=== PATIENT | male | born 1995 | race Caucasian/White ===

== ENCOUNTER 2019-05-07 21:23 | Emergency (ER) | payer BC, SELFPAY ==
[2019-05-07] VITALS (22 sets, daily range): BP systolic 120–142; BP diastolic 67–91; PULSE 112–160; RESP 16–42; TEMP 36.3; O2SAT 94–99
--- NOTE | 2019-05-07 21:41 | DI.CT_ITS ---
SYMPTOM/DIAGNOSIS: VOMITING AND DIARRHEA FOR [address]: 05/07 CT examination of the abdomen and pelvis was performed with a bolus infusion of 100 cc Omnipaque 350. Images obtained through the lung bases are unremarkable. Note is made of hepatic steatosis with no focal hepatic lesion. Liver appears mildly enlarged. Spleen is enlarged and there is a peripheral wedge shaped defect or defects which may represent regions of splenic infarction. Pancreas is unremarkable in appearance. No perisplenic fluid. Adrenals and kidneys are unremarkable. Abdominal aorta is of normal diameter and no major vascular abnormalities seen. No significant abdominal wall hernia. No adenopathy. Appendix is normal No evidence of diverticulitis or bowel obstruction. CONCLUSION: Splenomegaly and peripheral wedge shape splenic defects suggesting infarct. Other etiologies including hematoma or infectious process not entirely excluded. Follow up CT examination may be obtained if clinically indicated.
--- NOTE | 2019-05-07 21:43 | W.ED.GENAD ---
Discharge Plan Disposition Patient Disposition: [facility] Condition: Stable Discharge Details Chief Complaint: Nausea/Vomit/Diar Clinical Impression: Splenic infarct Primary Care Provider: Marci,Local ED Provider: Javier Lake Home Meds and New Rx's Prescriptions: No Action cetirizine [Zyrtec] 10 mg Tablet 10 mg PO DAILY RF: 0 citalopram 10 mg Tablet 10 mg PO DAILY RF: 0 Medical Decision Making <Mahamed Haq DO - Last Filed: 05/07/19 23:38> This is a 23-year-old male with a past medical history of notable anxiety who presents today for evaluation of nausea vomiting diarrhea for the last week. No red flags of hematemesis, hematochezia melena or acholic stool. No abdominal tenderness whatsoever. No recent antibiotics, long trips, or previous cardiac disease or pulmonary emboli. Patient has had notable stressors as of late, he recently lost his regular psychologist at [place], he just moved back appear to [place], and has had multiple stresses on his life. Physical exam demonstrates notably tachycardic, notably nervous appearing young male. No abdominal tenderness whatsoever. No guarding or rebound. Notably dry mucous membranes. He has no chest pain or shortness of breath whatsoever. He states that he often gets extremely tachycardic when he comes to the hospital. I feel that patient's symptoms are likely from notable anxiety, potentially causing a stress ulcer leading to the nausea vomiting and diarrhea. Patient is tachycardia is a combination of notable dehydration in conjunction with anxiety. However because of the patient's symptoms, we will evaluate for cardiac etiology, rehydrate, get a CT scan of his abdomen, evaluate for electrolyte status and reassess. Denies PE risk factors such as , immobilization, recent surgery, prior history of DVT or PE, family history of PE or DVT, morbid obesity, exogenous estrogen and smoking, hemoptysis, history of cancer. 11:[address] scan results have returned, and per virtual radiology there is evidence of splenomegaly in conjunction with a peripheral wedge-shaped lesion in the spleen concerning for splenic infarct. Morphology is expected to be subacute. Laboratory work-up has returned and demonstrates mild electrolyte abnormalities of a potassium of 3.1 which will correct. Calcium is slightly at 8.3. TSH notably elevated. Troponin normal. White count is 14.76. Repeat assessment as the patient's heart rate has slowed does demonstrate questionable mild systolic murmur. No Janeway lesions or Osler nodes. The patient is afebrile here. The patient continues to deny any IV or illicit drug use. Patient has had occasional intermittent fevers lately, but is afebrile here. Differential does include septic emboli, less likely leukemia or lymphoma, or bleeding coagulation abnormality. Lactate has been added, PT and INR has been added. EKG 21: 41 Rate 135, intervals normal, sinus tachycardia, NJ slightly short, no evidence of delta wave. No significant ST elevations or depressions. Inverted T wave is present in lead III and aVF. FINDINGS: Liver: Fatty liver with no mass lesions. Gallbladder and bile ducts: No stones or dilation, gallbladder present. Pancreas: No ductal dilation. No masses. Spleen: Splenomegaly. Peripheral wedge shaped region of hypoattenuation measuring up to 6 cm. somewhat hazy margins. No perisplenic collections. The spleen measures 16 cm craniocaudad. Adrenals: No mass. Kidneys and ureters: No hydronephrosis. No renal masses. Stomach and bowel: Submucosal fat deposition in the colon, likely habitus related. No focal pathology in the remainder of the colon. No focal pathology in the small bowel. Appendix: No evidence of appendicitis. Intraperitoneal space: Trace rectovesical free fluid. Vasculature: No abdominal aortic aneurysm. Lymph nodes: Enlarged gastrohepatic lymph nodes. No significant retroperitoneal adenopathy. Enlarged portacaval lymph nodes. Bladder: Unremarkable as visualized. Reproductive: Unremarkable as visualized. Bones/joints: No acute fracture. No dislocation. Soft tissues: No suspicious lesions. IMPRESSION: 1. Splenomegaly. Peripheral wedge shaped region of hypoattenuation in the spleen, probably a splenic infarct, morphology suggests subacute. 2. Fatty liver. Portacaval and gastrohepatic adenopathy. 3. Additional findings as described. Dictated and Authenticated by: Cheryl Vences MD. Ordering:FAZAL Irby MD <Javier Lake MD - Last Filed: 05/08/19 00:52> Received signout from Dr. Haq. Please see his note regarding details of the presentation and initial plan of care. Patient's diagnostic studies notable for a lactic acid of 2.9, elevated white blood cell count at 14 with left shift, fairly discrete anion gap of 12, normal troponin. He has a 6 cm peripheral wedge-shaped infarct of his spleen on CT, note of fatty liver. Heart rate initially 160s, improving to 117. He remains hemodynamically stable. Receiving 1 L #2 of fluid, his blood cultures obtained and is receiving vancomycin and Zosyn. Case discussed with Dr Wilhelm of [facility] [place] and patient accepted in transfer for ongoing monitoring and workup of splenic infarct with subj fevers and elevated lactic acidosis/WBC. Lab Data Lab results reviewed: Yes I reviewed the patient's lab results. Laboratory Results - last 24 hr 05/07/19 05/07/19 05/07/19 21:49 21:49 21:49 WBC 14.76 H RBC 4.15 L Hgb 13.2 L Hct 38.5 L MCV 92.8 MCH 31.8 MCHC 34.3 RDW 13.8 Plt Count 238 MPV 10.8 Immature Gran % See Differential Neutrophils % 28.0 Band Neutrophils % 5.0 Lymphocytes % 40.0 Atypical Lymphs % 21 Monocytes % 6.0 Eosinophils % 0.0 Basophils % 0.0 Absolute Neutrophils 4.87 Absolute Lymphocytes 9.00 H Absolute Monocytes 0.89 H Absolute Eosinophils 0.00 Absolute Basophils 0.00 Differential Comment Manual differential Other Cell Type RBC Morphology Normal Sodium 137 Potassium 3.1 L Chloride 98 Carbon Dioxide 27.0 Anion Gap 12.0 H BUN 10 Creatinine 1.30 Estimated GFR/1.73 m2 >= 60.00 Glucose 171 H Lactate Calcium 8.3 L Total Bilirubin 0.9 AST 51 H ALT 27 Alkaline Phosphatase 119 H Troponin I < 0.05 Total Protein 8.2 Albumin 3.5 Lipase 252 TSH 8.29 H Free T4 1.27 05/07/19 23:40 WBC RBC Hgb Hct MCV MCH MCHC RDW Plt Count MPV Immature Gran % Neutrophils % Band Neutrophils % Lymphocytes % Atypical Lymphs % Monocytes % Eosinophils % Basophils % Absolute Neutrophils Absolute Lymphocytes Absolute Monocytes Absolute Eosinophils Absolute Basophils Differential Comment Other Cell Type RBC Morphology Sodium Potassium Chloride Carbon Dioxide Anion Gap BUN Creatinine Estimated GFR/1.73 m2 Glucose Lactate 2.9 H* Calcium Total Bilirubin AST ALT Alkaline Phosphatase Troponin I Total Protein Albumin Lipase TSH Free T4 HPI <Mahamed Haq DO - Last Filed: 05/07/19 23:38> General Date/Time Provider Initiated Documentation: 05/07/19 21:30. HPI Narrative: This is a 23-year-old male with a past medical history of notable anxiety, who presents today for nausea vomiting and diarrhea for the last week. Patient states that roughly 1 to 2 weeks ago he was living in [place] with his mother, while he was there he was seeing a counselor regularly. And fortunately that counselor had a baby and they were no longer able to see each other as she was taking care of the child. This caused notable increase in anxiety and nervousness. Shortly after that the patient then moved back up here, switched his jobs, and is had continued stressors on his life. In addition to that over the last 1 to 2 weeks he has had nausea vomiting and diarrhea daily. He denies any hematemesis, hematochezia, melena or acholic stool. He denies any recent antibiotic use, foreign travel, camping, or other sick contacts. He denies any history of GI disease. He has no other complaints at this time. He denies any abdominal pain whatsoever but does admit to mild nausea. He denies chest pain, shortness of breath, fever, chills, numbness, tingling, weakness, syncope. He denies any history of cardiac disease. He does admit to notable anxiety made significantly worse by being in the hospital. He has no other complaints at this time. Related Data Home Medications Medication Instructions Recorded Confirmed cetirizine [Zyrtec] 10 mg PO DAILY 05/07/19 05/07/19 citalopram 10 mg PO DAILY 05/07/19 05/07/19 Allergies Allergy/AdvReac Type Severity Reaction Status Date / Time No Known Allergies Allergy Unverified 05/07/19 23:44 General Stated Complaint: Nausea/Vomit/Diar XIOMARA: 3 Review of Systems <Mahamed Haq DO - Last Filed: 05/07/19 23:38> Review of Systems All systems reviewed & are unremarkable except as noted in HPI and below PFS <Mahamed Haq DO - Last Filed: 05/07/19 23:38> Social History Smoking/Tobacco Use Status: Never Alcohol Intake: never Drug use: Occasionally Substance use type: marijuana Do you feel safe at home: Yes Do you feel safe in your relationship?: Yes Exam <Mahamed Haq DO - Last Filed: 05/07/19 23:38> Narrative Exam Narrative: 1.Const: Well-nourished, Well-developed, appearing stated age 2.Eyes: PERRL, no conjunctival injection, and symmetrical lids. 3.ENT: Atraumatic external nose and ears. Moist MM. Neck: Symmetric, trachea midline, No thyromegaly. 4.CVS: +S1/S2, notable tachycardia, questionable murmur, Peripheral pulses 2+ and equal in all extremities. Brisk capillary refill in all extremities. 5.RESP: Unlabored respiratory effort. Clear to auscultation bilaterally. No wheezes rales or rhonchi 6.GI: Soft, Nontender/Nondistended, No hepatosplenomegaly. No guarding or rebound. No pain at McBurney's point, negative Yarbrough sign. 7.MSK: Normocephalic/Atraumatic, Extremities w/o deformity or ttp No cyanosis or clubbing, Normal movement of all extremities 8.Skin: Warm, Dry. No rashes or lesions. No Osler nodes or Janeway lesions. 9.Neuro: waistline joiner lockstitch II-XII grossly intact. Sensation grossly intact, no focal neurologic deficits. 10.Psych: (AAO) x3. Appropriate mood and affect Course <Mahamed Haq, DO - Last Filed: 05/07/19 23:38> Vital Signs Temperature 36.3 C L 05/07/19 21:30 Pulse 160 H 05/07/19 21:30 Respiratory Rate 16 05/07/19 21:30 Blood Pressure 122/87 05/07/19 21:30 Pulse Oximetry 96 05/07/19 21:30 Temperature 36.3 C L 05/07/19 21:30 Temperature Source Skin 05/07/19 21:30 Pulse 160 H 05/07/19 21:30 Respiratory Rate 16 05/07/19 21:30 Blood Pressure 122/87 05/07/19 21:30 Blood Pressure Position Sitting 05/07/19 21:30 Pulse Oximetry 96 05/07/19 21:30 Oxygen Delivery Method Room Air 05/07/19 21:30 Oxygen Flow Rate 0 05/07/19 21:30 Sign Out <Mahamed Haq DO - Last Filed: 05/07/19 23:38> Sign Out Data: Sign Out Comment: Pending lactate, PTT, PT. Splenic infarct, elevated white count. Thank and Zosyn given, blood cultures drawn. Expectant transfer to tertiary care facility Last updated by Mahamed Haq DO at 05/07/19 23:46
[2019-05-07] MEDS: Normal Saline 1,000 ML 1000 ML IV ×2 (21:55→23:55)
[2019-05-07] MEDS: LORazepam 2 MG/ML VIAL 0.5 MG IVP (21:57)
[2019-05-07] MEDS: Pantoprazole 40 MG VIAL IVP (21:59)
[2019-05-07] MEDS: Omnipaque 350 MG/ML 100 ML BTL IJ (22:23)
[2019-05-07 22:28] LABS: Abs Immature Grans 0.03 k/cumm (0.0-0.09); HCT 38.5 % (40.0-50.0); HGB 13.2 g/dL (13.5-17.5); Mean Corp. HGB Concentration 34.3 g/dL (32.0-36.0); Mean Corpuscular Hemoglobin 31.8 pg (27.0-33.0); Mean Corpuscular Volume 92.8 fL (80-95); Mean Platelet Volume 10.8 fL (8.0-11.0); Platelet Count 238 x1000/uL (130-400); RBC 4.15 m/cumm (4.50-6.00); RBC Distribution Width 13.8 % (11.8-14.1); White Blood Cell Count 14.76 k/cumm (4.4-10.8)
[2019-05-07 22:51] LABS: ALT 27 U/L (12-78); AST 51 U/L (15-37); Albumin 3.5 g/dL (3.4-5.0); Alkaline Phosphatase 119 U/L (46-116); BUN 10 mg/dL (7-18); Bilirubin, Total 0.9 mg/dL (0.2-1.0); Calcium 8.3 mg/dL (8.5-10.1); Chloride 98 mmol/L (98-107); Glucose 171 mg/dL (70-100); Potassium 3.1 mmol/L (3.5-5.1); Sodium 137 mmol/L (136-145); TSH (W/Ref FT4) 8.29 uIU/mL (0.36-3.74); Total Protein 8.2 g/dL (6.4-8.2); Troponin I < 0.05 ng/mL (0.00-0.06)
[2019-05-07 22:52] LABS: Lipase 252 U/L (73-393)
--- NOTE | 2019-05-07 22:54 | DI.VRAD_ITS ---
Addendum created by Cheryl Vences MD on 05/07/2019 11:55:18 PM EDT Findings were discussed with Dr Lake at 05/07/2019 23:53 EDT. Initial report created on 05/07/2019 10:54:21 PM EDT EXAM: CT Abdomen and Pelvis With Contrast EXAM DATE/TIME: 05/07/2019 21:43 CLINICAL HISTORY: 23 years old, male; Vomiting and other: Diarrhea; Patient HX: Vomiting and diarrhea for 1 week TECHNIQUE: Imaging protocol: Axial computed tomography images of the abdomen and pelvis with intravenous contrast. Coronal and sagittal reformatted images were created and reviewed. COMPARISON: No relevant prior studies available. FINDINGS: Liver: Fatty liver with no mass lesions. Gallbladder and bile ducts: No stones or dilation, gallbladder present. Pancreas: No ductal dilation. No masses. Spleen: Splenomegaly. Peripheral wedge shaped region of hypoattenuation measuring up to 6 cm. somewhat hazy margins. No perisplenic collections. The spleen measures 16 cm craniocaudad. Adrenals: No mass. Kidneys and ureters: No hydronephrosis. No renal masses. Stomach and bowel: Submucosal fat deposition in the colon, likely habitus related. No focal pathology in the remainder of the colon. No focal pathology in the small bowel. Appendix: No evidence of appendicitis. Intraperitoneal space: Trace rectovesical free fluid. Vasculature: No abdominal aortic aneurysm. Lymph nodes: Enlarged gastrohepatic lymph nodes. No significant retroperitoneal adenopathy. Enlarged portacaval lymph nodes. Bladder: Unremarkable as visualized. Reproductive: Unremarkable as visualized. Bones/joints: No acute fracture. No dislocation. Soft tissues: No suspicious lesions. IMPRESSION: 1. Splenomegaly. Peripheral wedge shaped region of hypoattenuation in the spleen, probably a splenic infarct, morphology suggests subacute. 2. Fatty liver. Portacaval and gastrohepatic adenopathy. 3. Additional findings as described. Dictated and Authenticated by: Cheryl Vences MD. Ordering:FAZAL Irby MD
[2019-05-07 23:07] LABS: FREE T4 1.27 ng/dL (0.76-1.46)
[2019-05-07 23:17] LABS: Absolute Monocyte Count 0.89 k/cumm (0.11-0.7); Absolute Neutrophil Count 4.87 k/cumm (1.2-6.7); Atypical Lymphocytes % 21; Diff Comment Manual Differential
[2019-05-07 23:18] LABS: RBC Morphology Normal
[2019-05-07] MEDS: POTASSIUM CHLORIDE 20 MEQ/100 ML BAG 50 MEQ IVPB (23:46)
[2019-05-07 23:55] LABS: Lactate 2.9 mmol/L (0.6-1.4)
[2019-05-07] MEDS: MAGNESIUM SULFATE 1 GM/100 ML BAG IVPB (23:55)
[2019-05-08] VITALS (23 sets, daily range): BP systolic 124–155; BP diastolic 61–116; PULSE 106–154; RESP 34; O2SAT 92–98
[2019-05-08 01:25] LABS: INR 1.2 (0.9-1.1); PTT Activated 26.1 sec (21.0-31.4); Prothrombin Time 12.1 sec (9.3-11.0)
[2019-05-08] MEDS: PIPERACILLIN/TAZO 3.375 GM in Normal Saline 50 ML IVPB (01:39)
[2019-05-08] MEDS: VANCOMYCIN 2,000 MG in Normal Saline 500 ML 333.3333 MG IVPB (01:50)
[2019-05-08] MEDS: Normal Saline 1,000 ML 150 ML IV (02:04)
== END 2019-05-08 02:30 | disposition short-term general hospital (02) ==
PROVIDERS: Student in an Organized Health Care Education/Training Program; Emergency Provider Emergency Medicine
DX: D73.5 Infarction of spleen (principal); R00.0 Tachycardia, unspecified
CPT/HCPCS: 36415; 80053; 83690; 87040; 93005; 96361; 96365; 96367; 96368; 96375; 99285; 74177; 83605; 84439; 84443; 84484; 85025; 85610; 85730; 87086; 93010; J2060; J2543; J3475; J3480; J3490